=== PATIENT | female | born 1940 | race Caucasian/White ===

== ENCOUNTER 2024-02-24 10:34 | Day surgery (SDC) | payer MEDICARE ==
[2024-02-24] MEDS ORDERED: LACTATED RINGERS 1,000 ML IV SCH (11:42)
[2024-02-24] MEDS: IV FLUID CONTINUATION 1,000 ML IV ONE (11:43)
[2024-02-24 11:57] VITALS: TEMP 97.2
[2024-02-24] MEDS ORDERED: LIDOCAINE 1% INJ 10MG/ML (20 ML MDV) ONE (12:18)
[2024-02-24] MEDS ORDERED: PROPOFOL 10 MG/ML 20 ML VIAL IV ONE (12:18)
--- NOTE | 2024-02-24 12:43 | P.PCN ---
Date of Procedure: 02/24/24 Procedure(s) Performed: Brief history: Patient is a pleasant 83-year-old white female scheduled for an elective upper endoscopy as well as colonoscopy as a part of evaluation of GERD and chronic diarrhea for the last several months duration Procedure performed: Esophagogastroduodenoscopy with biopsy Colonoscopy with random biopsies Preoperative diagnosis: GERD Chronic diarrhea [place] [facility] [place]: After informed consent was obtained from the patient was brought into the endoscopy unit and IV sedation was administered by anesthesia under continuous monitoring. Initially upper endoscopy was done. The Olympus GF 160 video endoscope was inserted inserted into the mouth and esophagus intubated without any difficulty and was gradually advanced into the stomach and duodenum and carefully examined. The bulb and second part of the duodenum appeared normal. The scope was then withdrawn into the stomach adequately insufflated with air and upon careful examination the antrum had antral erosive gastritis and biopsies were done from this area. Mucosa body, cardia and fundus appeared norm al. The scope was then withdrawn into the esophagus. Small to moderate-sized hiatal hernia noted. The GE junction was located at 35 cm to the incisors. There was a 1 cm polyp at the GE junction that was biopsied. The GE junction appeared regular with no erythema erosions or ulcerations. Rest of the esophagus appeared normal. Patient tolerated the procedure well. At this time the patient continued to remain sedation. Initial digital rectal examination was normal. Olympus CF 160 video colonoscope was then inserted into the rectum and gradually advanced to the sigmoid colon and further advancement was not possible. The scope was removed and a. Colonoscopy was then introduced to the rectum and gradually advanced into the cecum without any difficulty. Careful examination was performed as the scope was gradually being withdrawn. The prep was excellent. The cecum, ascending colon, transverse colon, descending colon, sigmoid colon and rectum appeared normal. Random biopsies wer e done from the ascending and descending colon rule out microscopic/collagenous colitis. Scattered sigmoid diverticulosis. Retroflexion was performed in the rectum and no lesions were noted. Moderate sigmoid diverticulosis. Patient tolerated the procedure well. Impression: 1. Upper endoscopy revealed 1 cm GE junction polyp s/p biopsy, moderate-sized hiatal hernia and antral erosive gastritis 2. Colonoscopy revealed scattered sigmoid diverticulosis without colorectal neoplasia Recommendations: Findings of this examination were discussed with the patient as well as her family. She was advised to follow-up with the biopsy results. She will be seen in the office in 2 to 3 weeks. Will be seen in the office in 2 to 3 weeks.
[2024-02-24 13:22] VITALS: RESP 18
[2024-02-24 13:46] VITALS: BP 192/86; PULSE 56
== END 2024-02-24 14:01 | disposition home or self-care (01) ==
LOC: ORWHC2ENDO 10:34
PROVIDERS: ATTEND Internal Medicine Gastroenterology
DX: K21.00 Gastro-esophageal reflux disease with esophagitis, without bleeding (principal); K29.50 Unspecified chronic gastritis without bleeding; K22.82 Esophagogastric junction polyp; K44.9 Diaphragmatic hernia without obstruction or gangrene; D72.820 Lymphocytosis (symptomatic); K52.9 Noninfective gastroenteritis and colitis, unspecified; K57.30 Diverticulosis of large intestine without perforation or abscess without bleeding; Z79.899 Other long term (current) drug therapy
CPT/HCPCS: 43239; 45380; 88305; 88313; 88342